=== PATIENT | female | born 1945 ===

== ENCOUNTER 2024-10-05 02:38 | Inpatient (IN) | payer MEDICARE, BC ==
[2024-10-05 06:38] LABS: BASOPHILS ABSOLUTE AUTO 0.06 K/uL (0.00-0.10); BASOPHILS PERCENT AUTO 0.6 % (0.1-1.3); EOSINOPHILS ABSOLUTE AUTO 0.30 K/uL (0.00-0.40); EOSINOPHILS PERCENT AUTO 3.2 % (0.0-5.4); IMMATURE GRAN ABSOLUTE AUTO 0.04 K/uL (0.00-0.23); IMMATURE GRAN PERCENT AUTO 0.4 % (0.0-0.7); LYMPHOCYTES ABSOLUTE AUTO 1.41 K/uL (0.8-3.3); LYMPHOCYTES PERCENT AUTO 14.9 % (11.4-47.7); MONOCYTES ABSOLUTE AUTO 0.96 K/uL (0.20-0.90); MONOCYTES PERCENT AUTO 10.2 % (3.3-12.6); NEUTROPHILS ABSOLUTE AUTO 6.67 K/uL (1.0-7.6); NEUTROPHILS PERCENT AUTO 70.7 % (40.0-78.1); PLATELET COUNT,PLT 305 K/uL (130-375); WHITE BLOOD CELL COUNT,WBC 9.4 K/uL (3.2-11.0)
[2024-10-05 06:51] LABS: APPEARANCE,URINE CLEAR (CLEAR); GLUCOSE,URINE 500 mg/dL (NEGATIVE); OCCULT BLOOD,URINE TRACE-INTACT (NEGATIVE)
[2024-10-05 06:54] LABS: RED BLOOD CELL COUNT 4.40 M/uL (3.77-5.24)
[2024-10-05 06:58] LABS: EPITHELIAL CELLS,URINE FEW
[2024-10-05 06:59] LABS: A/G RATIO 1.0 (1.2-2.2); ALANINE AMINOTRANSFERASE,ALT 23 U/L (12-78); ASPARTATE AMNIOTRANSFERASE,AST 21 U/L (15-37); BILIRUBIN TOTAL 1.2 mg/dL (0.2-1.0); BLOOD UREA NITROGEN,BUN 39 mg/dL (7-18); CARBON DIOXIDE,CO2 25 mmol/L (21-32); CHLORIDE,CL 102 mmol/L (100-108); CREATININE 1.1 mg/dL (0.6-1.0); EST CRCL DRUG DOSING (CG) 40.99 mL/min; ESTIMATED GFR 51 mL/min (>60); GLUCOSE RANDOM 123 mg/dL (74-106); POTASSIUM,K 4.0 mmol/L (3.6-5.2); PROTEIN TOTAL,TP 7.0 g/dL (6.4-8.2); SODIUM,NA 138 mmol/L (140-148)
[2024-10-05] MEDS: Diltiazem 120 MG Cap.CD PO SCH (08:44)
[2024-10-05] MEDS: Nystatin Topical Powder 15 GM Bottle TOP SCH ×2 (08:47→15:54)
[2024-10-05] MEDS: Lactulose Soln 10 GM/15 ML 15 ML UD Cup PO SCH (08:47)
[2024-10-05] MEDS: Ketorolac 30 MG/ML SDV IM ONE (10:08)
[2024-10-05] MEDS ORDERED: Sennosides/Docusate Sodium 50-8.6 MG Tab PO PRN (10:18)
[2024-10-05] MEDS ORDERED: 50% Dextrose in Water 50 ML Syringe IV PRN (10:18)
[2024-10-05] MEDS ORDERED: Ondansetron 4 MG/2 ML SDV IV PRN (10:18)
[2024-10-05] MEDS ORDERED: Sodium Chloride 0.9% 10 ML Syringe FLUSH PRN (10:18)
[2024-10-05] MEDS ORDERED: Glucose Gel 15 GM in 37.5 GM Tube PO PRN (10:18)
[2024-10-05] MEDS: Insulin Lispro 100 Unit/ML 3 ML KwikPen SUBCUT SCH (11:32)
[2024-10-06 05:48] LABS: PLATELET COUNT,PLT 275.0 K/uL (130-375); RED BLOOD CELL COUNT 4.22 M/uL (3.77-5.24)
[2024-10-06 06:08] LABS: WHITE BLOOD CELL COUNT,WBC 6.4 K/uL (3.2-11.0)
[2024-10-06 06:11] LABS: A/G RATIO 0.9 (1.2-2.2); ALANINE AMINOTRANSFERASE,ALT 21.0 U/L (12-78); ASPARTATE AMNIOTRANSFERASE,AST 19.0 U/L (15-37); BILIRUBIN DIRECT 0.2 mg/dL (0.0-0.2); BILIRUBIN INDIRECT 0.5; BILIRUBIN TOTAL 0.7 mg/dL (0.2-1.0); PROTEIN TOTAL,TP 6.5 g/dL (6.4-8.2)
[2024-10-07 05:48] LABS: PLATELET COUNT,PLT 295.0 K/uL (130-375); RETICULOCYTE COUNT PERCENT 1.87 % (0.53-2.48); WHITE BLOOD CELL COUNT,WBC 7.2 K/uL (3.2-11.0)
[2024-10-07 06:02] LABS: RED BLOOD CELL COUNT 4.14 M/uL (3.77-5.24)
[2024-10-07 06:06] LABS: IRON,FE 16 ug/dL (50-170); PERCENT FE SATURATION 5 % (20-55)
[2024-10-07 06:36] LABS: BLOOD UREA NITROGEN,BUN 31.0 mg/dL (7-18); CARBON DIOXIDE,CO2 27.0 mmol/L (21-32); CHLORIDE,CL 103.0 mmol/L (100-108); CREATININE 1.0 mg/dL (0.6-1.0); EST CRCL DRUG DOSING (CG) 44.97 mL/min; ESTIMATED GFR 58.0 mL/min (>60); GLUCOSE RANDOM 91.0 mg/dL (74-106); POTASSIUM,K 4.1 mmol/L (3.6-5.2); SODIUM,NA 138.0 mmol/L (140-148)
[2024-10-07 06:37] LABS: FOLIC ACID 19.6 ng/ml (8.6-58.9); LACTATE DEHYDROGENASE,LDH 178.0 U/L (82-234)
[2024-10-07] MEDS ORDERED: Sodium Ferric Gluconate Cmplex 250 MG in Sodium Chloride 0.9% 100 ML IV ONE (12:00)
[2024-10-08] MEDS: Divalproex Sodium Delayed-Release 125 MG Cap.Sprink PO SCH (13:01)
[2024-10-09] MEDS: Divalproex Sodium Delayed-Release 125 MG Cap.Sprink PO SCH (10:57)
== END 2024-10-09 13:45 | disposition home or self-care (01) | DRG 690 ==
LOC: JP.ED 02:38 → JP.MS 09:45
PROVIDERS: ADMIT Hospitalist; ATTEND Internal Medicine
DX: N30.00 Acute cystitis without hematuria (principal); F02.818 Dementia in other diseases classified elsewhere, unspecified severity, with other behavioral disturbance; G30.9 Alzheimer's disease, unspecified; E11.22 Type 2 diabetes mellitus with diabetic chronic kidney disease; I48.91 Unspecified atrial fibrillation; N18.31 Chronic kidney disease, stage 3a; E61.1 Iron deficiency; B37.2 Candidiasis of skin and nail; I50.9 Heart failure, unspecified; D64.9 Anemia, unspecified; I89.0 Lymphedema, not elsewhere classified; B96.20 Unspecified Escherichia coli [E. coli] as the cause of diseases classified elsewhere; Z88.0 Allergy status to penicillin; Z88.8 Allergy status to other drugs, medicaments and biological substances; Z88.2 Allergy status to sulfonamides; Z79.01 Long term (current) use of anticoagulants; Z79.899 Other long term (current) drug therapy
CPT/HCPCS: 36415; 80053; 81001; 83605; 83880; 85025; 87086; 87088; 87186; 99285; A9270 ×10; 80048; 80076; 82607; 82728; 82746; 82947; 83550; 83615; 83735; 85027; 85045; 97161-GP; 99223; 99233; 99238; J1885